=== PATIENT | male | born 1990 | race Caucasian/White ===

== ENCOUNTER 2016-06-30 09:30 | Emergency (ER) | payer OTHER ==
[~2016-06-30] VITALS: Ht 177.8 cm; Wt 101.8 kg
[~2016-06-30 09:30] MED LIST: PRINZIDE 12.5 M1 TAB PO; PROAIR HFA0.09 MG/AC IH
[2016-06-30 09:36] VITALS: PULSE 78; TEMP 98
[2016-06-30 11:18] VITALS: BP 145/90
== END 2016-06-30 11:19 | disposition home or self-care (01) ==
LOC: COL.ER 09:30
DX: S92.535A Nondisplaced fracture of distal phalanx of left lesser toe(s), initial encounter for closed fracture (principal); I10 Essential (primary) hypertension; W22.8XXA Striking against or struck by other objects, initial encounter